=== PATIENT | female | born 1970 | race Caucasian/White ===

== ENCOUNTER 2016-09-28 07:30 | Inpatient (IN) | payer BC ==
--- NOTE | 2016-09-24 13:07 | RADIOLOGY REPORT (SQ) ---
EXAM DESCRIPTION: CHEST PA/LATERAL COMPLETED DATE/TIME: 09/24/2016 12:40 pm REASON FOR STUDY: PRE OP COMPARISON: None. EXAM PARAMETERS: NUMBER OF VIEWS: two views TECHNIQUE: Digital Frontal and Lateral radiographic views of the chest acquired. RADIATION DOSE: NA LIMITATIONS: none FINDINGS: LUNGS AND PLEURA: No opacities, masses or pneumothorax. No pleural effusion. MEDIASTINUM AND HILAR STRUCTURES: No masses or contour abnormalities. HEART AND VASCULAR STRUCTURES: Heart normal size. No evidence for failure. BONES: No acute findings. HARDWARE: None in the chest. OTHER: No other significant finding. IMPRESSION: NO SIGNIFICANT RADIOGRAPHIC FINDING IN THE CHEST. TECHNICAL DOCUMENTATION: JOB ID: [id number] REPP- All Rights Reserved
[2016-09-24 13:26] LABS: ALANINE AMINOTRANSFERASE 19 U/L (9-52); ALBUMIN 4.5 g/dL (3.5-5.0); ALKALINE PHOSPHATASE 68 U/L (38-126); ANION GAP 9 (5-19); ASPARTATE AMINO TRANSFERASE 22 U/L (14-36); BILIRUBIN,DIRECT 0.3 mg/dL (0.0-0.4); BILIRUBIN,TOTAL 0.5 mg/dL (0.2-1.3); BLOOD UREA NITROGEN 10 mg/dL (7-20); CALCIUM 9.8 mg/dL (8.4-10.2); CARBON DIOXIDE 26 mmol/L (22-30); CHLORIDE 105 mmol/L (98-107); CREATININE RESULT 0.81 mg/dL (0.52-1.25); GLUCOSE 95 mg/dL (75-110); POTASSIUM 5.3 mmol/L (3.6-5.0); SODIUM 139.7 mmol/L (137-145); TOTAL PROTEIN 7.9 g/dL (6.3-8.2)
[2016-09-24 13:30] LABS: APPEARANCE,URINE SLIGHTLY HAZY; BILIRUBIN,URINE NEGATIVE (NEGATIVE); GLUCOSE, URINE NEGATIVE (NEGATIVE); KETONES,URINE NEGATIVE (NEGATIVE); PROTEIN,URINE NEGATIVE (NEGATIVE); URINE SPECIFIC GRAVITY 1.016
[2016-09-24 13:31] LABS: LEUKOCYTE ESTERASE,URINE NEGATIVE (NEGATIVE); NITRITE,URINE NEGATIVE (NEGATIVE); RBC,URINE NONE SEEN /HPF; UROBILINOGEN,URINE NEGATIVE mg/dL (<2.0); WBC,URINE NONE SEEN /HPF
[2016-09-25 09:06] LABS: HEMATOCRIT 35.4 % (36.0-47.0); HEMOGLOBIN 11.4 g/dL (12.0-15.5); HGB HCT DIFFERENCE -1.2; MEAN CORPUSCULAR HEMOGLOBIN 25.9 pg (27.0-33.4); MEAN CORPUSCULAR HGB CONC 32.3 g/dL (32.0-36.0); MEAN CORPUSCULAR VOLUME 80 fl (80-97); RED BLOOD COUNT 4.42 10^6/uL (3.72-5.28); RED CELL DISTRIBUTION WIDTH 16.5 % (11.5-14.0); WHITE BLOOD COUNT 6.6 10^3/uL (4.0-10.5)
--- NOTE | 2016-09-25 11:02 | EKG REPORT ---
SEVERITY:- ABNORMAL ECG - SINUS OR ECTOPIC ATRIAL BRADYCARDIA LAD, CONSIDER LEFT ANTERIOR FASCICULAR BLOCK LOW VOLTAGE IN FRONTAL LEADS NONSPECIFIC T ABNORMALITIES, LATERAL LEADS : Confirmed by: Samira Hernandez MD 25-Sep-2016 11:02:00
[~2016-09-28 07:30] MED LIST: CEFAZOLIN 1 GM/D5W RTU 1 GM/50 ML RTUPB IV PRN; LACTATED RINGERS 1000 ML IV PRN; LIDOCAINE 0.5% INJ-PF (5 MG/ML) 50 ML SDV SUBCUT PRN
[2016-09-28] MEDS ORDERED: FENTANYL CITRATE INJ/PF 100 MCG/2 ML AMPUL ONE ×2 (08:24→08:25)
[2016-09-28] MEDS ORDERED: HYDROMORPHONE HCL INJ/PF 2 MG/ML AMPULE ONE (08:24)
[2016-09-28] MEDS ORDERED: PROPOFOL INJ 200 MG/20 ML VIAL IV ONE (08:25)
[2016-09-28] MEDS ORDERED: MIDAZOLAM 2 MG/2 ML INJ ONE (08:25)
[2016-09-28] MEDS ORDERED: ACETAMINOPHEN 100 ML IV ONE (08:26)
[2016-09-28] MEDS ORDERED: BUPIVACAINE HCL 0.25% /EPINEPHRINE INJ/PF 30 ML SDV ONE (08:28)
[2016-09-28] MEDS ORDERED: KETOROLAC TROMETHAMINE 60 MG/2 ML SDV ONE (09:48)
[2016-09-28] MEDS ORDERED: SUCCINYLCHOLINE CHLORIDE INJ 200 MG/10 ML VIAL ONE (09:48)
[2016-09-28] MEDS ORDERED: ONDANSETRON HCL INJ/PF 4 MG/2 ML SDV ONE (09:48)
[2016-09-28] MEDS ORDERED: NEOSTIGMINE METHYLSULFATE 10 MG/10 ML VIAL ONE (09:48)
[2016-09-28] MEDS ORDERED: METOCLOPRAMIDE HCL INJ/PF 10 MG/2 ML SDV ONE (09:48)
[2016-09-28] MEDS ORDERED: ROCURONIUM BROMIDE INJ 50 MG/5 ML VIAL IV ONE (09:48)
[2016-09-28] MEDS ORDERED: DEXAMETHASONE SOD PHOSPHATE INJ 4 MG/1 ML VIAL ONE (09:48)
[2016-09-28] MEDS ORDERED: GLYCOPYRROLATE INJ 0.4 MG/2 ML VIAL ONE (09:48)
[2016-09-28] MEDS ORDERED: LIDOCAINE 2% INJ-PF (20 MG/ML) 10 ML AMPUL ONE (09:48)
[2016-09-28] MEDS ORDERED: FENTANYL CITRATE INJ/PF 100 MCG/2 ML AMPUL IV PRN ×3 (11:59)
[2016-09-28] MEDS ORDERED: DIPHENHYDRAMINE HCL 50 MG/ML VIAL IV PRN (11:59)
[2016-09-28] MEDS ORDERED: OXYCODONE-ACETAMINOPHEN 5-325 MG TABLET PO PRN ×6 (11:59→14:29)
[2016-09-28] MEDS ORDERED: MORPHINE SULFATE 10 MG/ML INJ IV PRN ×2 (11:59→14:09)
[2016-09-28] MEDS ORDERED: ONDANSETRON HCL INJ/PF 4 MG/2 ML SDV IV PRN (16:41)
[2016-09-28] MEDS ORDERED: RINGERS SOLUTION,LACTATED 500 ML IV ONE (17:30)
[2016-09-28] MEDS: RINGERS SOLUTION,LACTATED 1,000 ML IV PRN ×2 (17:38→22:06)
[2016-09-28] MEDS: OXYCODONE-ACETAMINOPHEN 5-325 MG TABLET PO PRN (19:18)
[2016-09-29] MEDS: OXYCODONE-ACETAMINOPHEN 5-325 MG TABLET PO PRN ×2 (03:17→09:27)
--- NOTE | 2016-09-29 07:37 | PDOC PROGRESS REPORT ---
Subjective Subjective:: Pt reports minimal pain, no n/v, +po, +flatus. no vaginal bleeding Physical Exam - Physical Exam Vital Signs: Temp Pulse Resp BP Pulse Ox 97.7 F 60 20 151/97 H 100 09/29/16 03:04 09/29/16 03:04 09/29/16 03:04 09/29/16 03:04 09/29/16 03:04 Intake & Output 09/28/16 09/29/16 09/30/16 06:59 06:59 06:59 Intake Total 1900 Output Total 2650 Balance -750 General appearance: PRESENT: no acute distress, cooperative, well-developed - Incision are clean, dry and intact Result Laboratory Results: 09/24/16 12:05 09/28/16 08:38 09/28/16 08:38 Potassium 4.2 Impressions: Chest X-Ray 09/24/16 12:25 IMPRESSION: NO SIGNIFICANT RADIOGRAPHIC FINDING IN THE CHEST. Assessment & Plan - Diagnosis (1) Menorrhagia with irregular cycle Is this a current diagnosis for this admission?: Yes - Time Time Spent with patient: 15-24 minutes Medications reviewed and adjusted accordingly: Yes Anticipated discharge: Home Within: within 24 hours - Will d/c home [facility] postop care instructions given keep f/u appt
[2016-09-29 09:12] VITALS: BP 147/93
[2016-09-29] MEDS ORDERED: LISINOPRIL 10 MG TABLET PO SCH (10:00)
[2016-09-29] MEDS ORDERED: METHIMAZOLE 5 MG TABLET PO SCH (22:00)
--- NOTE | 2016-11-03 09:59 | OPERATIVE REPORT E ---
Operative Report NAME: JOBY ELLSWORTH : 1970 AGE: 46Y DATE OF SURGERY: 09/28/2016 ROOM: 225 PREOPERATIVE DIAGNOSIS: Menorrhagia. POSTOPERATIVE DIAGNOSIS: Menorrhagia. PROCEDURES: 1. Laparoscopic-assisted vaginal hysterectomy. 2. Bilateral salpingectomy. SURGEON: Andres Mehta D.O. HEALTH INFORMATION CODER: None. ANESTHESIA: General endotracheal anesthesia. COMPLICATIONS: None. PATHOLOGY: Uterus, cervix, bilateral fallopian tubes. ESTIMATED BLOOD LOSS: Lrc-qclkynf-qxhii mL. FINDINGS: Normal appearing pelvic anatomy. PROCEDURE: Patient was taken to the operating room where she was placed in the dorsal supine position upon the operating room table. She was then administered her general endotracheal anesthesia. Once this was found to be done, she was placed in dorsal lithotomy position in Mateo stirrups. She was then prepped and draped in normal sterile fashion. A 5 mm incision was made at the base of the patient's umbilicus where a 5 mm direct Optiview scope was passed under visualization in the peritoneal cavity. Once inside the peritoneal cavity, CO2 gas was connected and turned on and opening pressures were found to be less than 5. Patient's abdomen was then allowed to fill with CO2 gas. Following this, a 5 mm port was placed in the left and right lower quadrants under direct visualization without evidence of trauma or injury. Using the harmonic scalpel, a bilateral salpingectomy was performed with excellent hemostasis. The tubes were then removed through the 5 mm port sites. Using the harmonic scalpel, the bilateral round ligaments were transected with excellent hemostasis. The uterine arteries were skeletonized and a bladder flap was created without difficulty. The uterine arteries bilaterally were then cauterized using the Kleppinger device and then transected using the harmonic scalpel with excellent hemostasis. Once this was done, all instruments were removed from the patient's abdomen and attention was then turned to the patient's vagina where an open-sided speculum was then placed inside the patient's vagina. The cervix was easily visualized and grasped with a thyroid tenaculum. The cervix was then injected circumferentially with dilute vasopressin. Using the Bovie cautery, a circumferential incision was made around the cervix. Entry was then made into the anterior/posterior cul-de-sacs without difficulty. The bilateral uterosacral ligaments were clamped, cut, and suture ligated using 1-0 Vicryl. Following this, sequential pedicle sites were taken with the LigaSure device until the uterus was free. All pedicle sites revealed excellent hemostasis. The specimen was then handed off to the nurses. The vaginal cuff was then closed using 1-0 Vicryl in a running locking fashion. There was excellent hemostasis noted. All instruments were then removed from the patient's vagina and the surgeon then changed gloves. Attention was turned back up to the patient's abdomen where the CO2 gas was turned back on and the patient's abdomen was allowed to fill with CO2 gas. A visual inspection revealed excellent hemostasis on the inside of the patient's abdomen. Pressures were taken down to less than 5 and there was continued good hemostasis. Following this, all ports, gas, and instruments were removed from the patient's abdomen and the skin incisions were then closed with Dermabond. At this point in time, the procedure was terminated. All sponge, lap, and needle counts were correct x2. Patient tolerated the procedure well. Patient was taken to the recovery room in stable condition. DICTATING PHYSICIAN: Andres Mehta DO [id number] PHY#: [id number] ID: [id number] JOB#: [id number] ACCT: [id number] cc:Andres Mehta D.O. >
--- NOTE | 2016-11-03 11:53 | DISCHARGE SUMMARY E ---
Discharge Summary NAME: JOBY ELLSWORTH : 1970 AGE: 46Y ADMITTED: 09/28/2016 DISCHARGED: 09/29/2016 REASON FOR ADMISSION: Patient with a long history of menorrhagia requesting permanent surgical solution. FINAL DIAGNOSIS FOR ADMISSION: Patient with a long history of menorrhagia requesting permanent surgical solution. HISTORY AND PHYSICAL: See Dr. Mehta' dictated history and physical from 09/26/2016 for full details. HOSPITAL COURSE: Patient was admitted to the hospital where she underwent her surgical procedure. It is a laparoscopic-assisted vaginal hysterectomy with bilateral salpingectomy. It is an uncomplicated procedure. See operating room note for full details. She is transferred to [facility] for her postoperative care. Postoperative day number 1, patient's vital signs have remained stable. She has remained afebrile. Her postoperative hemoglobin is stable. Her Gandara catheter has been removed and she is able to void without difficulty and she also has good flatulence. She is able to ambulate in the hallway without difficulty. On postoperative day number 1, patient is meeting all goals and requesting to be sent home, therefore, the patient is discharged home. DISCHARGE INSTRUCTIONS: Discharge patient to home. DIET: Regular. LEVEL OF ACTIVITY: Pelvic rest and no heavy lifting x6 weeks. FOLLOWUP INTERVAL: Two weeks with Dr. Mehta. SPECIAL INSTRUCTIONS: Patient was instructed to call MD if temperature greater than 100.5, heavy vaginal bleeding, or signs and symptoms of wound infection. MEDICATIONS ON DISCHARGE: 1. Motrin. 2. Percocet. DICTATING PHYSICIAN: Andres Mehta DO [id number] [id number] PHY#: [id number] ID: [id number] JOB#: [id number] ACCT: [id number] cc:Andres Mehta D.O. >
--- NOTE | 2016-11-18 09:32 | DISCHARGE SUMMARY E ---
Discharge Summary NAME: JOBY ELLSWORTH : 1970 AGE: 46Y ADMITTED: 09/28/2016 DISCHARGED: 09/29/2016 ADDENDUM: Diagnosis found on pathological report for her pathological specimen from her laparoscopic-assisted vaginal hysterectomy revealed chronic cervical cervicitis, mild chronic endometritis, no evidence of endometrial hyperplasia or malignancy, a submucosal fibroid measuring 0.5 cm, and the bilateral fallopian tubes having chronic salpingitis. DICTATING PHYSICIAN: Andres Mehta DO [id number] [id number] PHY#: [id number] ID: [id number] JOB#: [id number] ACCT: [id number] cc:Andres Mehta D.O. >
== END 2016-09-29 10:55 | disposition home or self-care (01) | DRG 743 ==
LOC: EDSTATUS 07:30 → INOR 08:11 → 2S 14:30
PROVIDERS: ADMIT Obstetrics & Gynecology; ATTEND Obstetrics & Gynecology
PROC: 0UTC7ZZ Resection of Cervix, Via Natural or Artificial Opening (ICD-10-PCS; 2016-09-28)
PROC: 0UT7FZZ Resection of Bilateral Fallopian Tubes, Via Natural or Artificial Opening With Percutaneous Endoscopic Assistance (ICD-10-PCS; 2016-09-28)
PROC: 0UT9FZZ Resection of Uterus, Via Natural or Artificial Opening With Percutaneous Endoscopic Assistance (ICD-10-PCS; principal; 2016-09-28 10:30)
DX: N72 Inflammatory disease of cervix uteri (principal); N92.0 Excessive and frequent menstruation with regular cycle; N71.1 Chronic inflammatory disease of uterus; N70.11 Chronic salpingitis; D25.0 Submucous leiomyoma of uterus; F17.210 Nicotine dependence, cigarettes, uncomplicated; Z80.0 Family history of malignant neoplasm of digestive organs
CPT/HCPCS: 36415; 71020; 80053; 81001; 81025; 84132; 85025; 85027; 86850; 86900; 86901; 88307; 93005; 93010; 944; J0131; J0330; J0690; J1100; J1170; J1885; J2250; J2405; J2704; J2765; J3010; J3490; J7120